=== PATIENT | male | born 1940 | race Caucasian/White ===

== ENCOUNTER 2016-12-03 00:06 | Emergency (ER) | payer MEDICARE, BC ==
[~2016-12-03] VITALS: Ht 188 cm; Wt 90.0 kg
[~2016-12-03 00:06] MED LIST: AMLO-147 PO; BENA40TA54 PO; CEPH500C PO; DONE10TA4 PO; ICNCLON PO; INSU100C5 SQ; ISOP1MED TP; METH10TA97 PO; SMV40T PO; TAMS0.4C2 PO; flomax
[2016-12-03 00:17] VITALS: Ht 188 cm; Wt 90.0 kg
[2016-12-03] MEDS ORDERED: SOD CHLORIDE 0.9% 250 ML IV STA (00:25)
[2016-12-03] MEDS ORDERED: LIDOCAINE/MYLANTA 40 ML BTL PO STA (00:25)
[2016-12-03 00:30] VITALS: BP 133/57; PULSE 66; RESP 20; TEMP 97.9
--- NOTE | 2016-12-03 00:34 | HP ---
Date/Time of Note Date/Time of Note DATE: 12/03/16 TIME: 00:27 Assessment/Plan VTE Prophylaxis VTE Prophylaxis Intervention: ambulation, anti-embolic stocking, LMWH Lines/Catheters IV Catheter Type (from Nrsg): Saline Lock Central line still needed: No Urinary Cath still in place: No Reason Cath still needed: urinary retention Assessment/Plan Assessment/Plan 1.N/V controlled-cont. w/u 2.CP- r/o mi 3.DM type 2 -sliding scale 4.Uncontrolled HTN 5.Dyslipidemia 6.COPD exacerbation 7.BPH 8.Hypertyroidism 9.AD and MG 10.PAD 11.Hematuria 12.DAVID disease 14.Anemia of chronic disease 15.Dizziness Cont'd Hospitalization Reason: r/o mi HPI/ROS Admit Date/Time Admit Date/Time n/v with uncontrolled bp. ROS Constitutional: chills, diaphoresis, disoriented, fatigue Eyes: discharge Respiratory: cough, shortness of breath, sputum Gastrointestinal: decreased appetite, flatus, nausea, pain Musculoskeletal: back pain, neck pain Neurologic: dizziness, headache PMH/Family/Social Past Medical History Medical History: angina, colitis, congestive heart failure, coronary artery disease, diabetes, GERD, GI bleed, high cholesterol, hypertension, hyperthyroid , pancreatitis, peptic ulcer disease, urinary tract infection Past Surgical History Past Surgical Hx: noncontributory Family History Significant Family History: no pertinent family hx, heart disease, COPD, diabetes, hypertension Social History Alcohol Use: rarely Smoking Status: Current every day smoker Drug Use: none Exam/Review of Systems Vital Signs Vitals Vital Signs Date Time Temp Pulse Resp B/P Pulse Ox O2 Delivery O2 Flow Rate FiO2 12/03/16 00:17 97.8 68 19 146/60 98 BARBARA LA MD Dec 03, 2016 00:34
[2016-12-03 00:51] LABS: ADD SCAN DIFF NO
[2016-12-03 00:52] LABS: BASOPHILS % 0.3 % (0.0-2.0); EOSINOPHILS # 0.2 10^3/ul (0.0-0.5); EOSINOPHILS % 1.5 % (0.0-7.0); HEMATOCRIT 35.6 % (42.0-52.0); LYMPHOCYTES # 2.7 10^3/ul (0.8-2.9); LYMPHOCYTES % 24.1 % (15.0-51.0); MEAN CORPUSCULAR HEMOGLOBIN 29.4 pg (29.0-33.0); MEAN CORPUSCULAR HGB CONC 33.7 g/dl (32.0-37.0); MEAN CORPUSCULAR VOLUME 87.3 fl (82.0-101.0); MEAN PLATELET VOLUME 9.5 fl (7.4-10.4); MONOCYTE # 0.5 10^3/ul (0.3-0.9); MONOCYTES % 4.8 % (0.0-11.0); NEUTROPHIL # 7.8 10^3/ul (1.6-7.5); NEUTROPHILS % 68.8 % (39.0-77.0); PLATELET COUNT 239 10^3/UL (140-415); RED BLOOD COUNT 4.08 10^6/ul (4.70-6.10); RED CELL DISTRIBUTION WIDTH 13.5 % (11.5-14.5); WHITE BLOOD COUNT 11.3 10^3/ul (4.8-10.8)
[2016-12-03 01:03] LABS: INR 0.96; PARTIAL THROMBOPLASTIN TIME 33.2 Sec (25.0-35.0); PROTIME 12.8 Sec (12.2-14.2)
[2016-12-03 01:04] LABS: ALBUMIN 4.1 g/dl (3.3-4.9)
[2016-12-03 01:05] LABS: POTASSIUM 3.9 mmol/L (3.5-5.1)
[2016-12-03 01:07] LABS: ALBUMIN/GLOBULIN RATIO 1.2; CREATININE 0.96 mg/dl (0.61-1.24); TOTAL PROTEIN 7.5 g/dl (6.1-8.1)
[2016-12-03 01:08] LABS: CALCIUM 8.9 mg/dl (8.4-10.2)
[2016-12-03 01:20] LABS: TROPONIN-I 0.018 ng/ml (0.00-0.12)
[2016-12-03 01:31] LABS: CK-MB 0.42 ng/ml (0.0-2.4)
[2016-12-03 01:38] LABS: ADD UMIC YES; URINE BILIRUBIN (Dip) NEGATIVE (NEGATIVE); URINE BLOOD (Dip) NEGATIVE (NEGATIVE); URINE COLOR LT. YELLOW (YELLOW); URINE GLUCOSE (Dip) NEGATIVE (NEGATIVE); URINE KETONES (Dip) NEGATIVE (NEGATIVE); URINE LEUKOCYTE ESTERASE (Dip) 1+ (NEGATIVE); URINE NITRITE (Dip) NEGATIVE (NEGATIVE); URINE TOTAL PROTEIN (Dip) 1+ (NEGATIVE); URINE UROBILINOGEN (Dip) 0.2 E.U./dL (0.1-1.0)
[2016-12-03 03:03] LABS: SQUAMOUS EPITHELIAL CELL,UR FEW; URINE RBCS 0-2 /HPF (0)
--- NOTE | 2016-12-03 03:08 | RADRPT ---
PROCEDURE: XR Chest. CLINICAL INDICATION: Abdominal Pain TECHNIQUE: Portable single view of the chest COMPARISON: 08/30/2013 FINDINGS: Shallow lung inflation accentuates the heart size which likely remains moderately enlarged. Aortic calcification is seen. Lung volumes are again reduced with pulmonary vascular congestion and perhap s mild interstitial edema. No definite focal alveolar infiltrate. No pleural effusion is seen. De generative change of the spine. IMPRESSION: No significant interval change. Cardiomegaly. Aortic atherosclerosis. Low lung volumes with probable mild congestive heart failure. RPTAT: HLBE Physician Annelise Date Time Electronically viewed and signed by Annie Red Physician on 12/03/2016 03:07 LE/
--- NOTE | 2016-12-03 04:54 | ERD ---
ER Documentation Chief Complaint Date/Time DATE: 12/03/16 TIME: 04:47 Chief Complaint chest pain x 1.5 hrs HPI 76-year-old male with a history of hypertension and CAD presenting to the ER after having several episodes of vomiting. For the chief complaint but says that the patient had chest pain, however he denies this. He states that he ate of few prunes last night before he went to bed. He failed to to the prunes because he did not have his dentures in. After he went to sleep, he states he woke up with the sensation that he was choking with shortness of breath. He started throwing up multiple times and all that was coming out where the prunes. He denies any blood. He had some epigastric pain during the vomiting, which has now resolved. He denies any nausea currently. No fevers, chills, cough, shortness of breath, chest pain. He denies any headache, focal weakness , vision disturbance, dizziness. ROS All systems reviewed and are negative except as per history of present illness. Medications Home Meds Reported Medications [flomax] No Conflict Check 08/30/13 Cephalexin* (Cephalexin*) 500 Mg Capsule, 500 MG PO 08/30/13 Insulin Glargine,Hum.rec.anlog (Lantus) 100 U/Ml Cartridge, 0 SQ 08/30/13 Donepezil Hcl (DONEPEZIL HCL) 10 Mg Tab.rapdis, 10 MG PO 08/30/13 Clonidine (Clonidine (Pediatric Compound)) 0.1 Mg/Ml Susp, 0.2 MG PO 08/30/13 Tamsulosin Hcl* (Tamsulosin Hcl*) 0.4 Mg Cap.er.24h, 0.4 MG PO 08/30/13 Isopropyl Alcohol/Benzocaine (SM ALCOHOL-BENZOCAINE PREP PAD) 1 Each Med..pad, 1 EACH TP 08/30/13 Amlodipine Besylate* (Amlodipine Besylate*) 10 Mg Tablet, 10 MG PO 08/30/13 Benazepril Hcl* (Lotensin*) 40 Mg Tablet, 40 MG PO 08/30/13 Simvastatin (Simvastatin) 40 Mg Tablet, 40 MG PO 08/30/13 Methimazole* (Tapazole*) 10 Mg Tablet, 10 MG PO 08/30/13 Allergies Allergies: Coded Allergies: No Known Allergies (Verified Allergy, Unknown, 10/12/08) PMhx/Soc History of Surgery: Yes (STENT PLACEMENT,NOSE SX,PROSTATE) Anesthesia Reaction: No Hx Neurological Disorder: No Hx Respiratory Disorders: Yes (COPD) Hx Cardiac Disorders: Yes (HTN,HYPERCHOLESTEROL) Hx Psychiatric Problems: Yes (DEMENTIA) Hx Miscellaneous Medical Probl: No (DM, GLAUCOMA ) Hx Alcohol Use: No Hx Substance Use: No Hx Tobacco Use: Yes (8-10CIGS/ DAY ) Smoking Status: Current every day smoker FmHx Family History: No diabetes Physical Exam Vitals Vital Signs Date Time Temp Pulse Resp B/P Pulse Ox O2 Delivery O2 Flow Rate FiO2 12/03/16 00:30 97.9 66 20 133/57 98 Room Air 12/03/16 00:17 97.8 68 19 146/60 98 Physical Exam Const: Well-appearing, no distress, not diaphoretic Head: Atraumatic Eyes: Normal Conjunctiva ENT: Normal External Ears, Nose and Mouth. Neck: Full range of motion. No meningismus. Resp: Clear to auscultation bilaterally Cardio: Regular rate and rhythm, no murmurs Abd: Soft, non tender, non distended. Normal bowel sounds Skin: Warm, dry. No petechiae or rashes Back: No midline or flank tenderness Ext: No cyanosis, or edema Neur: Awake and alert and oriented 3, cranial nerves intact, strength and sensations intact in all 4 extremities Psych: Normal Mood and Affect Result Diagram: 12/03/160 12/03/16 0040 Results 24 hrs Laboratory Tests Test 12/03/16 00:40 12/03/16 01:25 Activated Partial Thromboplast Time 33.2Sec Alanine Aminotransferase (ALT/SGPT) 34IU/L Albumin 4.1g/dl Albumin/Globulin Ratio 1.20 Alkaline Phosphatase 79IU/L Anion Gap 18 Aspartate Amino Transf (AST/SGOT) 24IU/L Basophils # 0.010^3/ul Basophils % 0.3% Blood Urea Nitrogen 25mg/dl Calcium Level 8.9mg/dl Carbon Dioxide Level 26mmol/L Chloride Level 106mmol/L Creatine Kinase 34IU/L Creatinine 0.96mg/dl Creatinine Kinase MB (Mass) 0.42ng/ml Direct Bilirubin 0.00mg/dl Eosinophils # 0.210^3/ul Eosinophils % 1.5% Globulin 3.40g/dl Glucose Level 106mg/dl Hematocrit 35.6% Hemoglobin 12.0g/dl INR International Normalized Ratio 0.96 Indirect Bilirubin 0.0mg/dl Lipase 152U/L Lymphocytes # 2.710^3/ul Lymphocytes % 24.1% Mean Corpuscular Hemoglobin 29.4pg Mean Corpuscular Hemoglobin Concent 33.7g/dl Mean Corpuscular Volume 87.3fl Mean Platelet Volume 9.5fl Monocytes # 0.510^3/ul Monocytes % 4.8% Neutrophils # 7.810^3/ul Neutrophils % 68.8% Nucleated Red Blood Cells # 0.010^3/ul Nucleated Red Blood Cells % 0.0/100WBC Platelet Count 51356^3/UL Potassium Level 3.9mmol/L Prothrombin Time 12.8Sec Prothrombin Time Ratio 1.0 Red Blood Count 4.0810^6/ul Red Cell Distribution Width 13.5% Sodium Level 146mmol/L Total Bilirubin 0.0mg/dl Total Protein 7.5g/dl Troponin I 0.018ng/ml White Blood Count 11.310^3/ul Urine Bilirubin NEGATIVE Urine Clarity CLEAR Urine Color LT. YELLOW Urine Glucose NEGATIVE% Urine Hemoglobin NEGATIVE Urine Ketones NEGATIVE Urine Leukocyte Esterase 1+ Urine Microscopic RBC 0-2/HPF Urine Microscopic WBC 5-10/HPF Urine Nitrite NEGATIVE Urine Specific [place] 1.025 Urine Squamous Epithelial Cells FEW Urine Total Protein 1+ Urine Urobilinogen 0.2 E.U./dL Urine pH 5.5 Current Medications Medications (Trade) Dose Ordered Sig/Nubia Route PRN Reason Start Time Stop Time Status Last Admin Dose Admin Sodium Chloride (NS) 250 ml @ 250 mls/hr Q1H STAT IV 12/03/16 00:25 12/03/16 01:24 DC 12/03/16 00:54 Miscellaneous Medication (Gi Cocktail (2)) 40 ml ONCE STAT PO 12/03/16 00:25 12/03/16 00:27 DC Procedures/MDM EMERGENT LABS AND DIAGNOSTIC STUDIES: Lab Results above were reviewed and interpreted by me. CBC and CMP without significant abnormalities Cardiac enzymes are within normal limits 12-lead EKG was interpreted by Silvia Camarillo MD: Normal sinus rhythm Left anterior fascicular block LVH No acute ST or T wave changes suggestive of acute ischemia or STEMI. Radiology Results as interpreted by Radiology below were reviewed by Wayne Camarillo MD: Chest x-ray without acute abnormalities Initial Nursing notes reviewed. Previous Medical Records requested via the Electronic Health Record. EMERGENCY DEPARTMENT COURSE / MEDICAL DECISION MAKING: Patient is presenting after he woke up with a feeling of something stuck in his throat and he started vomiting. After this he felt perfectly fine. Currently his vitals are within normal limits and he is afebrile. He is nontoxic and his exam is unremarkable. His EKG did not show acute ischemia and his cardiac enzymes were within normal limits. I have a low suspicion for any intracranial hemorrhage, stroke, dissection. I have a low suspicion for acute coronary syndrome. There is no evidence of acute surgical abdomen. I discussed the results with the patient and stated that I cannot completely rule out acute coronary syndrome as he is at high risk with just 1 troponin and 1 EKG. He understands this but would like to go home at this time as he feels significantly better. There was shared decision making with the patient and his family. They understand that acute coronary syndrome cannot be ruled out at this time, but they feel comfortable taking him home and returning if any of his symptoms worsen. Patient was discharged in stable condition with strict return precautions. Patient's blood pressure was elevated (>120/80) but appears stable without evidence of hypertensive emergency or urgency. The patient was counseled about the risks of hypertension and urged to pursue outpatient monitoring and therapy within a week with their primary care physician. Departure Diagnosis: Primary Impression: Nausea and vomiting Vomiting type: unspecified Vomiting Intractability: non-intractable Qualified Code: R11.2 - Non-intractable vomiting with nausea, unspecified vomiting type Condition: Stable Patient Instructions: Nausea and Vomiting-Adult Additional Instructions: Return for any new or worsening symptoms. EKMEKJIAN,NELLIE R. MD Dec 03, 2016 04:54
== END 2016-12-03 03:27 | disposition home or self-care (01) ==
LOC: E/R 00:06
DX: R11.2 Nausea with vomiting, unspecified (principal); J44.9 Chronic obstructive pulmonary disease, unspecified; I10 Essential (primary) hypertension; E11.9 Type 2 diabetes mellitus without complications; F17.210 Nicotine dependence, cigarettes, uncomplicated; Z79.4 Long term (current) use of insulin
CPT/HCPCS: 36415; 71010; 80053; 81001; 82550; 82553; 83690; 84484; 85025; 85610; 85730; 99285; J7040; 81003

== ENCOUNTER 2017-02-27 22:27 | Inpatient (IN) | payer MEDICARE, BC ==
[~2017-02-27] VITALS: Ht 185.4 cm; Wt 78.8 kg
[2017-02-28 00:37] LABS: ADD SCAN DIFF NO
[2017-02-28 00:39] LABS: BASOPHILS % 0.3 % (0.0-2.0); EOSINOPHILS # 0.1 10^3/ul (0.0-0.5); HEMOGLOBIN 11.8 g/dl (14.0-18.0); LYMPHOCYTES # 2.1 10^3/ul (0.8-2.9); LYMPHOCYTES % 17.8 % (15.0-51.0); MEAN CORPUSCULAR HGB CONC 31.9 g/dl (32.0-37.0); MEAN CORPUSCULAR VOLUME 84.7 fl (82.0-101.0); MEAN PLATELET VOLUME 9.9 fl (7.4-10.4); MONOCYTE # 0.7 10^3/ul (0.3-0.9); MONOCYTES % 5.7 % (0.0-11.0); NEUTROPHIL # 8.8 10^3/ul (1.6-7.5); NEUTROPHILS % 74.6 % (39.0-77.0); PLATELET COUNT 246 10^3/UL (140-415); RED BLOOD COUNT 4.37 10^6/ul (4.70-6.10); RED CELL DISTRIBUTION WIDTH 12.6 % (11.5-14.5); WHITE BLOOD COUNT 11.8 10^3/ul (4.8-10.8)
[2017-02-28 00:57] LABS: ALBUMIN 4.7 g/dl (3.3-4.9); ALBUMIN/GLOBULIN RATIO 1.42; BILIRUBIN,INDIRECT 0.1 mg/dl (0-1.1); BILIRUBIN,TOTAL 0.1 mg/dl (0.2-1.3); CALCIUM 9.4 mg/dl (8.4-10.2); CREATININE 1.07 mg/dl (0.61-1.24); POTASSIUM 4.5 mmol/L (3.5-5.1)
[2017-02-28 01:17] LABS: URINE BLOOD (Dip) POC 3+ (NEGATIVE)
[2017-02-28 01:37] LABS: ADD UMIC YES; URINE BILIRUBIN (Dip) NEGATIVE (NEGATIVE); URINE BLOOD (Dip) 3+ (NEGATIVE); URINE COLOR LT. YELLOW (YELLOW); URINE GLUCOSE (Dip) NEGATIVE (NEGATIVE); URINE KETONES (Dip) NEGATIVE (NEGATIVE); URINE LEUKOCYTE ESTERASE (Dip) NEGATIVE (NEGATIVE); URINE NITRITE (Dip) NEGATIVE (NEGATIVE); URINE TOTAL PROTEIN (Dip) 2+ (NEGATIVE); URINE UROBILINOGEN (Dip) 0.2 E.U./dL (0.1-1.0)
[2017-02-28 01:54] LABS: URINE RBCS >200 /HPF (0)
[2017-02-28 01:55] LABS: BACTERIA,URINE OCCASIONAL
--- NOTE | 2017-02-28 02:10 | ERA ---
ER Documentation Chief Complaint Date/Time DATE: 02/28/17 TIME: 02:10 Chief Complaint Urine problem. Dr Nj sent pt here. Urinary retention x4 days HPI 76-year-old male with history of bladder tumor with urinary retention for the past 3 days. Denies any nausea vomiting fevers or chills. Pain is mild to moderate intensity. Patient does have history of bladder tumor. Sent in by urologist. ROS All systems reviewed and are negative except as per history of present illness. Medications Home Meds Reported Medications [flomax] No Conflict Check 08/30/13 Cephalexin* (Cephalexin*) 500 Mg Capsule, 500 MG PO 08/30/13 Insulin Glargine,Hum.rec.anlog (Lantus) 100 U/Ml Cartridge, 0 SQ 08/30/13 Donepezil Hcl (DONEPEZIL HCL) 10 Mg Tab.rapdis, 10 MG PO 08/30/13 Clonidine (Clonidine (Pediatric Compound)) 0.1 Mg/Ml Susp, 0.2 MG PO 08/30/13 Tamsulosin Hcl* (Tamsulosin Hcl*) 0.4 Mg Cap.er.24h, 0.4 MG PO 08/30/13 Isopropyl Alcohol/Benzocaine (SM ALCOHOL-BENZOCAINE PREP PAD) 1 Each Med..pad, 1 EACH TP 08/30/13 Amlodipine Besylate* (Amlodipine Besylate*) 10 Mg Tablet, 10 MG PO 08/30/13 Benazepril Hcl* (Lotensin*) 40 Mg Tablet, 40 MG PO 08/30/13 Simvastatin (Simvastatin) 40 Mg Tablet, 40 MG PO 08/30/13 Methimazole* (Tapazole*) 10 Mg Tablet, 10 MG PO 08/30/13 Allergies Allergies: Coded Allergies: No Known Allergies (Verified Allergy, Unknown, 10/12/08) PMhx/Soc History of Surgery: Yes (STENT PLACEMENT,NOSE SX,PROSTATE) Anesthesia Reaction: No Hx Neurological Disorder: No Hx Respiratory Disorders: Yes (COPD) Hx Cardiac Disorders: Yes (HTN,HYPERCHOLESTEROL) Hx Psychiatric Problems: Yes (DEMENTIA) Hx Miscellaneous Medical Probl: Yes (DM, GLAUCOMA ) Hx Alcohol Use: No Hx Substance Use: No Hx Tobacco Use: Yes (8-10CIGS/ DAY ) Smoking Status: Current every day smoker Physical Exam Vitals Vital Signs Date Time Temp Pulse Resp B/P Pulse Ox O2 Delivery O2 Flow Rate FiO2 02/27/17 22:42 97.7 79 22 234/100 99 Physical Exam Const: [] Head: Atraumatic Eyes: Normal Conjunctiva ENT: Normal External Ears, Nose and Mouth. Neck: Full range of motion..~ No meningismus. Resp: Clear to auscultation bilaterally Cardio: Regular rate and rhythm, no murmurs Abd: Soft, non tender, non distended. Normal bowel sounds Skin: No petechiae or rashes Back: No midline or flank tenderness Ext: No cyanosis, or edema Neur: Awake and alert Psych: Normal Mood and Affect Result Diagram: 02/28/17 0020 02/28/17 0020 Results 24 hrs Laboratory Tests Test 02/28/17 00:20 02/28/17 01:15 02/28/17 01:19 White Blood Count 11.810^3/ul Red Blood Count 4.3710^6/ul Hemoglobin 11.8g/dl Hematocrit 37.0% Mean Corpuscular Volume 84.7fl Mean Corpuscular Hemoglobin 27.0pg Mean Corpuscular Hemoglobin Concent 31.9g/dl Red Cell Distribution Width 12.6% Platelet Count 96509^3/UL Mean Platelet Volume 9.9fl Neutrophils % 74.6% Lymphocytes % 17.8% Monocytes % 5.7% Eosinophils % 1.0% Basophils % 0.3% Nucleated Red Blood Cells % 0.0/100WBC Neutrophils # 8.810^3/ul Lymphocytes # 2.110^3/ul Monocytes # 0.710^3/ul Eosinophils # 0.110^3/ul Basophils # 0.010^3/ul Nucleated Red Blood Cells # 0.010^3/ul Sodium Level 142mmol/L Potassium Level 4.5mmol/L Chloride Level 102mmol/L Carbon Dioxide Level 27mmol/L Anion Gap 18 Blood Urea Nitrogen 23mg/dl Creatinine 1.07mg/dl Glucose Level 218mg/dl Calcium Level 9.4mg/dl Total Bilirubin 0.1mg/dl Direct Bilirubin 0.00mg/dl Indirect Bilirubin 0.1mg/dl Aspartate Amino Transf (AST/SGOT) 23IU/L Alanine Aminotransferase (ALT/SGPT) 31IU/L Alkaline Phosphatase 77IU/L Total Protein 8.0g/dl Albumin 4.7g/dl Globulin 3.30g/dl Albumin/Globulin Ratio 1.42 Lipase 103U/L Urine Color LT. YELLOW Urine Clarity CLEAR Urine pH 5.5 Urine Specific [place] 1.020 Urine Ketones NEGATIVE Urine Nitrite NEGATIVE Urine Bilirubin NEGATIVE Urine Urobilinogen 0.2 E.U./dL Urine Leukocyte Esterase NEGATIVE Urine Microscopic RBC >200/HPF Urine Microscopic WBC 0-2/HPF Urine Bacteria OCCASIONAL Urine Hemoglobin 3+ Urine Glucose NEGATIVE% Urine Total Protein 2+ Bedside Urine pH (LAB) 6.0 Bedside Urine Protein (LAB) 2+ Bedside Urine Glucose (UA) Negative Bedside Urine Ketones (LAB) Negative Bedside Urine Blood 3+ Bedside Urine Nitrite (LAB) Negative Bedside Urine Leukocyte Esterase (L Negative Procedures/MDM Thorpe catheter in place with 500 cc of fluid drained. Patient be admitted to on-call for his physician. Urologist made aware. Departure Diagnosis: Primary Impression: Genitourinary symptoms Condition: Serious DEBORAH AZAR Feb 28, 2017 02:10
[2017-02-28] MEDS ORDERED: COMBIG5 LEFT EYE (05:44)
[2017-02-28] MEDS ORDERED: CRES10 PO (05:44)
[2017-02-28] MEDS ORDERED: AMLO1TAB14 PO (05:44)
[2017-02-28] MEDS ORDERED: CLON0.2T5 PO (05:44)
[2017-02-28] MEDS ORDERED: LEVO500T10 PO (05:44)
[2017-02-28] MEDS ORDERED: EZET10TA3 PO (05:44)
[2017-02-28] MEDS ORDERED: IBUP200C11 PO (05:44)
[2017-02-28] MEDS ORDERED: TRAV4OP25 LEFT EYE (05:44)
[2017-02-28] MEDS ORDERED: SENN-53 PO (05:44)
[2017-02-28] MEDS ORDERED: METO-407 PO (05:44)
[2017-02-28] MEDS ORDERED: DORZ10DR LEFT EYE (05:44)
--- NOTE | 2017-02-28 08:36 | RADRPT ---
PROCEDURE: XR Chest AP portable CLINICAL INDICATION: Preop TECHNIQUE: An AP portable radiograph of the chest was submitted. COMPARISON: 12/03/2016 FINDINGS: Support Hardware: None Cardiovascular: The cardiovascular silhouette appears unremarkable except for persistent atheroscler otic changes involving the aorta. Lung Wyman: The lung wyman appear clear with no nodule, alveolar infiltrate, or interstitial promi nence evident. Pleural Spaces: No pneumothorax or pleural effusion is identified. Osseous Structures: Mild diffuse degenerative spine changes are noted. Soft Tissues: The soft tissues appear unremarkable. IMPRESSION: 1. Atherosclerotic aorta. 2. Improved inspiration with the lung wyman now clear. 3. Mild diffuse degenerative spine changes. Physician Vidhi Date Time Electronically viewed and signed by Physician Vidhi on 02/28/2017 08:35 /
--- NOTE | 2017-02-28 11:23 | RADRPT ---
Echocardiogram Report Patient Name: BYRON RODRIGUEZ Gender: Male Date: 1940 Study Date: 28-Feb-2017 [employer] Cleaning Machine Operator: Gareth Reyna [facility] Location: [id number] Ref. Physician: THA HOWARD Quality: Good Procedures: Transthoracic echocardiogram with complete 2D, M-Mode, and doppler examination. Indications: Coronary Artery Disease. Pre-op. 2D/M Mode Doppler Measurement Value Normal Ranges Measurement Value Normal Ranges LVIDd 2D 4.8 3.5 - 5.6 cm DEYANIRA Vmax 1.9 cm2 LVIDs 2D 2.7 2.1 - 4.1 cm DEYANIRA VTI 1.9 cm2 FS 2D 44.7 % AV Mean Fco 1.5 m/sec LVPWd 2D 1.2 0.6 - 1.1 cm AV Mean PG 11.0 mmHg IVSd 2D 1.0 0.6 - 1.1 cm AV Peak Fco 2.1 m/sec IVS/LVPW 2D 1.2 AV Peak PG 18.0 mmHg AoR Diam 2D 2.7 2.0 - 3.7 cm AV VTI 55.7 cm LA/Ao 2D 1 0 - 1 LVOT Mean Fco 0.9 m/sec EDV 2D 110.0 cm3 LVOT Mean PG 4.0 mmHg ESV 2D 18.6 cm3 LVOT Peak Fco 1.3 m/sec LA Dimen 2D 3.4 2.3 - 4.0 cm LVOT Peak PG 7.0 mmHg LVOT Diam 2.0 cm LVOT VTI 33.4 cm LVOT Area 3.1 cm2 MV E Peak Fco 0.5 m/sec MV A Peak Fco 0.8 m/sec MV E/A 0.7 MV Decel Time 215 msec MV E/A 0.7 TR Peak Fco 1.9 m/sec TR Peak PG 14.0 mmHg RVSP 17.0 mmHg Findings Left Ventricle: Normal left ventricular systolic function. Normal left ventricular cavity size. Mild concentric left ventricular hypertrophy. Ejection fraction is visually estimated at 65 %. Tissue Doppler/Mitral Doppler indices are consistent with impaired relaxation (Stage I diastolic dysfunction). Right Ventricle: Normal right ventricular size. Normal right ventricular systolic function. Left Atrium: The left atrium is normal in size. Right Atrium: The right atrium is normal in size. Mitral Valve: Normal appearance and function of the mitral valve with trace physiologic regurgitation. Aortic Valve: Aortic valve Max velocity 2.12 m/sec. Mean PG 11.00 mmHg. Aortic sclerosis without stenosis. Trace aortic valve regurgitation. Tricuspid Valve: Normal appearance of the tricuspid valve. Estimated peak PA systolic pressure 17 mmHg. There is trace tricuspid regurgitation. Pulmonic Valve: Pulmonic valve not well visualized. Pericardium: Normal pericardium with no significant pericardial effusion. Aorta: Normal aortic root. IVC: Normal size and normal respiratory collapse consistent with normal right atrial pressure. Conclusions Normal left ventricular systolic function. Normal left ventricular cavity size. Mild concentric left ventricular hypertrophy. Ejection fraction is visually estimated at 65 %. Tissue Doppler/Mitral Doppler indices are consistent with impaired relaxation (Stage I diastolic dysfunction). Normal right ventricular size. Normal right ventricular systolic function. The left atrium is normal in size. The right atrium is normal in size. No significant valvular stenosis or regurgitation seen. Normal pericardium with no significant pericardial effusion. Electronically Signed By: Tha Howard 28-Feb-2017 11:23:17 -0700 Patient Name: BYRON RODRIGUEZ Study Date: 28-Feb-2017 [id number]
--- NOTE | 2017-02-28 11:34 | CONS ---
Date/Time of Note Date/Time of Note DATE: 02/28/17 TIME: 11:25 Assessment/Plan Assessment/Plan Additional Assessment/Plan Preoperative cardiac risk stratification Bladder tumor with obstruction as per history Preserved ejection fraction CAD with history of PCI approximately 2008 Hypertension Diabetes Dyslipidemia -Patient denies chest pain or shortness of breath at rest or with activity. Echocardiogram with preserved ejection fraction. ECG without significant ischemic abnormalities. Patient at an intermediate risk for any untoward cardiac events for his bladder procedure, the benefits likely outweigh the risks. No further cardiac studies are needed prior to procedure. Would recommend continuing beta-jumana as blood pressure permits as well as statin therapy and blood pressure control. Withhold antiplatelet therapy and restart postoperatively when okay by our surgery colleagues. Consultation Date/Type/Reason Admit Date/Time Type of Consultation: cv Reason for Consultation Preoperative cardiac risk stratification Hx of Present Illness This is a 76-year-old male with past medical history of coronary artery disease with PCI approximately 2008, diabetes, hypertension who has been recently diagnosed with bladder tumor and urinary obstruction. Patient was sent to the emergency room for admission to undergo bladder procedure. Patient denies any chest pain or shortness of breath at rest or with exertion. He is able to walk up a flight of stairs and a few blocks without any symptoms of chest pain or shortness of breath. He does have history of hypertension which worsens during pain. Patient yesterday with significant discomfort and blood pressure was quite elevated. He denied any chest pain or shortness of breath during this episode. Cardiac consultation was requested for preoperative risk stratification. 12 point review of systems was performed with all pertinent positives and negatives mentioned above and all else is negative Past Medical History Bladder tumor Medical History: coronary artery disease, diabetes, high cholesterol, hypertension Past Surgical History Past Surgical Hx: angioplasty Family History Significant Family History: no pertinent family hx Social History Smoking Status: Current every day smoker Other Social History Lives at home Exam/Review of Systems Vital Signs Vitals Vital Signs Date Time Temp Pulse Resp B/P Pulse Ox O2 Delivery O2 Flow Rate FiO2 02/28/17 09:49 58 20 167/56 98 Room Air 02/27/17 22:42 97.7 Exam No apparent distress Constitutional: alert, obese, oriented Head: normocephalic Neck: supple Respiratory: other (Coarse breath sounds bilaterally, no wheezing) Cardiovascular: other (Clear S1 and S2), regular rate and rhythm, systolic murmur (Early peaking systolic murmur) Gastrointestinal: bowel sounds, non-tender, other (No guarding), soft Extremities: edema (Trace) Results Result Diagram: 02/28/17 0020 02/28/17 0020 Results 24 hrs Laboratory Tests Test 02/28/17 00:20 02/28/17 01:15 02/28/17 01:19 White Blood Count 11.8 H Red Blood Count 4.37 L Hemoglobin 11.8 L Hematocrit 37.0 L Mean Corpuscular Volume 84.7 Mean Corpuscular Hemoglobin 27.0 L Mean Corpuscular Hemoglobin Concent 31.9 L Red Cell Distribution Width 12.6 Platelet Count 246 Mean Platelet Volume 9.9 Neutrophils % 74.6 Lymphocytes % 17.8 Monocytes % 5.7 Eosinophils % 1.0 Basophils % 0.3 Nucleated Red Blood Cells % 0.0 Neutrophils # 8.8 H Lymphocytes # 2.1 Monocytes # 0.7 Eosinophils # 0.1 Basophils # 0.0 Nucleated Red Blood Cells # 0.0 Sodium Level 142 Potassium Level 4.5 Chloride Level 102 Carbon Dioxide Level 27 Anion Gap 18 H Blood Urea Nitrogen 23 H Creatinine 1.07 Glucose Level 218 Calcium Level 9.4 Total Bilirubin 0.1 L Direct Bilirubin 0.00 Indirect Bilirubin 0.1 Aspartate Amino Transf (AST/SGOT) 23 Alanine Aminotransferase (ALT/SGPT) 31 Alkaline Phosphatase 77 Total Protein 8.0 Albumin 4.7 Globulin 3.30 H Albumin/Globulin Ratio 1.42 Lipase 103 Urine Color LT. YELLOW Urine Clarity CLEAR Urine pH 5.5 Urine Specific [place] 1.020 Urine Ketones NEGATIVE Urine Nitrite NEGATIVE Urine Bilirubin NEGATIVE Urine Urobilinogen 0.2 E.U./dL Urine Leukocyte Esterase NEGATIVE Urine Microscopic RBC >200 Urine Microscopic WBC 0-2 Urine Bacteria OCCASIONAL Urine Hemoglobin 3+ H Urine Glucose NEGATIVE Urine Total Protein 2+ H Bedside Urine pH (LAB) 6.0 Bedside Urine Protein (LAB) 2+ H Bedside Urine Glucose (UA) Negative Bedside Urine Ketones (LAB) Negative Bedside Urine Blood 3+ H Bedside Urine Nitrite (LAB) Negative Bedside Urine Leukocyte Esterase (L Negative Procedures Procedures ECG demonstrates sinus rhythm at 79 bpm, left ventricular hypertrophy, IVCD with QRS 120 ms, nonspecific STT wave abnormalities Tha Howard DO Feb 28, 2017 11:34
[2017-02-28] MEDS ORDERED: ACETAMINOPHEN 325 MG TAB PO PRN (12:00)
[2017-02-28] MEDS ORDERED: GLUCOSE GEL 15 GRAM TUBE PO PRN ×2 (12:00)
[2017-02-28] MEDS ORDERED: ONDANSETRON 4 MG INJ IV PRN (12:00)
[2017-02-28] MEDS ORDERED: GLUCAGON 1 MG INJ IM PRN (12:00)
[2017-02-28] MEDS ORDERED: morphine 2 MG INJ IV PRN (12:00)
[2017-02-28] MEDS ORDERED: GLUCOSE GEL 15 GRAM TUBE BUCCAL PRN (12:00)
[2017-02-28] MEDS: INSULIN ASPART [NOVOLOG] 3 ML PEN SC SCH ×3 (12:00→22:21)
[2017-02-28] MEDS ORDERED: DEXTROSE 50% 50 ML SYRINGE IV PRN ×2 (12:00)
--- NOTE | 2017-02-28 12:16 | HP ---
DATE OF ADMISSION: 02/27/2017 CHIEF COMPLAINT: Hematuria and urinary retention. HISTORY OF PRESENT ILLNESS: Patient is a 76-year-old Jordanian gentleman with past medical history p ositive for coronary artery disease, COPD, congestive heart failure, hypertension, hyperlipidemia, d iabetes and history of urothelial carcinoma status post resection in [address] Nj. Patient n oted to have hematuria yesterday and went to Dr. Nj's office and was referred to the emergency room. The patient had a Thorpe catheter placed in the emergency room and there was 500 mL of urine d rained. The patient denies any fever, nausea, vomiting. Denies any chest pain, denies shortness of breath, and the patient will be admitted for further evaluation and management. PAST MEDICAL HISTORY: Coronary artery disease status post stent placement, the patient followed mary Claudio's office in cardiology. The patient also has history of hyperthyroidism and takes Tapaz ole. CHF, COPD, hyperlipidemia, tobacco dependence, hypertension, and diabetes mellitus type 2. PAST SURGICAL HISTORY: Status post sinus papilloma removal in 2003, cardiac stent placement in 2008 , details are not available; status post bladder tumor resection in 2012, status post left eye stan ract surgery 2014, status post left eye glaucoma surgery in 2015. SOCIAL HISTORY: The patient lives at home with his family. The patient is a [facility] tobacco user , smokes about 10 cigarettes per day, smoked for many years. The patient denies any alcohol use, de nies any illicit drug use. FAMILY HISTORY: Noncontributory. ALLERGIES: NO KNOWN ALLERGIES. HOME MEDICATIONS: Include: 1. Cephalexin 2. Lantus. 3. Donepezil. 4. ____ 5. Tamsulosin. 6. Amlodipine. 7. Lotensin. 8. Simvastatin. 9. Tapazole. REVIEW OF SYSTEMS: A 12-point review of systems is negative unless what mentioned in the HPI. PHYSICAL ASSESSMENT GENERAL: Well-developed, well-nourished male, currently is awake, alert, in no acute distress. VITAL SIGNS: Temperature is 97.7, pulse is 68, blood pressure is 167/56, respiratory rate 20, oxyge n saturation 98% on room air. HEENT: Head is atraumatic, normocephalic. Pupils equal, round, reactive to light and accommodation . Oral mucosa is pink and moist. NECK: Supple, no cervical lymphadenopathy, no thyromegaly. CHEST: Lungs clear bilaterally. There is no rhonchi, wheezes, rales noted. CARDIOVASCULAR: Normal S1, S2. No murmurs, gallops, clicks, rubs noted. ABDOMEN: Round, soft, nondistended, nontender. Bowel sounds present. There is no guarding, no william ound tenderness. EXTREMITIES: No edema, clubbing, cyanosis. Pulses equal bilaterally 2+. GENITOURINARY: Patient has a Thorpe catheter with yellow urine. SKIN: No rash, petechiae noted. NEUROLOGIC: Patient is awake, alert and oriented x4. No focal deficits noted. Motor strength 5/5 in all extremities. LABORATORY DATA: On admission, CBC: White blood cells 11.8, hemoglobin 11.8, hematocrit 37.0, plat elets 246. Chemistry: Sodium is 142, potassium 4.5, chloride 102, carbon dioxide 27, anion gap 18, BUN is 23, creatinine 1.07, glucose 218, calcium 9.4, AST 23, ALT 31, alkaline phosphatase 77, lipa se is 103. Urine alkalosis is negative for nitrite, negative for leukocyte esterase. IMAGING: Chest x-ray with impression of: 1. Atherosclerotic aorta, improved inspiration with lung wyman now clear. 2. Mild diffuse degenerative spine changes. ASSESSMENT AND PLAN: 1. Urinary retention with history of bladder tumor, status post transurethral resection of the blad trell tumor in 2012. Dr. Nj will be following patient in urology consultation. 2. Coronary artery disease with history of stent placement. Dr. Howard will be following patient i n cardiology consultation. 3. Hypertension. Will resume patient's home medication. Continue to monitor blood pressure. 4. Dyslipidemia. Continue statin. 5. Diabetes mellitus. Will continue Lantus and NovoLog per mild ____ sliding scale. 6. Hyperthyroidism. Continue Tapazole. Continue sequential compression device for deep venous thro mbosis prophylaxis and Pepcid for peptic ulcer disease prophylaxis. Further recommendations based on clinical course. Plan of care discussed with Dr. Cardenas. Dictated By: THOMAS GASTON RE[facility] ATTENDANT for LIDA CARDENAS MD SR/NTS Conf#: [id number] DID#: [id number]
--- NOTE | 2017-02-28 13:59 | CONS ---
DATE OF ADMISSION: 02/27/2017 DATE OF CONSULTATION: 02/28/2017 ATTENDING PHYSICIANS: Ryan Real MD and Janice Blount MD. HISTORY OF PRESENT ILLNESS: This is a 76-year-old male who has been having gross hematuria, painles s for about a week and he also has been passing blood clots. He does have a history of bladder tumo r that was resected in 2012. The patient was supposed to follow up, but according to his daughter, he is a very stubborn man and did not follow up, so now he comes in with gross hematuria. I saw him in the office on 02/26/2017, and on the ultrasound indeed it shows that he has 2 tumors, one on the left side, one on the right side of the bladder. The plan was to schedule him for resection of the se bladder tumors after he sees his primary care doctor, Dr. Blount and also the soil chemist to make sure that cardiology fallon he is cleared and especially that he has had a history of coronary ar elaine disease, history of angina, myocardial infarction, and he has had coronary stents put in before . The patient did go home. However, yesterday his daughter called me stating that he is bleeding a nd he cannot urinate. He had urinary retention; therefore, she brought him to the emergency room an d indeed he did have urinary retention. They put a Thorpe catheter and about 500 of urine mixed with blood was drained. Therefore, the patient was admitted to the hospital and we will see that he is medically cleared and then I will do the cystoscopy and resect the bladder tumor while he is in the hospital. PAST MEDICAL HISTORY: The other significant past medical history also includes a history of coronar y artery disease, diabetes, high cholesterol, and hypertension. SOCIAL HISTORY: The patient is a smoker and he still smokes every day. ALLERGIES: HE DENIES ANY DRUG ALLERGIES. MEDICATIONS: At home were reviewed, but at the present they are not all continued. The medications that he is now on include: 1. Methimazole 10 mg daily. 2. Lipitor 40 mg at bedtime. 3. Lopressor 50 mg twice a day. 5. Pepcid 20 mg q.12h. oral. 6. Combigan eyedrops. 7. Travatan eyedrops. 8. Tamsulosin 0.4 mg at bedtime. 9. Trusopt eyedrops. 10. Zofran p.r.n. 5. Tylenol p.r.n. 6. Morphine p.r.n. 7. Insulin also coverage for his diabetes. PHYSICAL EXAMINATION: GENERAL: Reveals an elderly male, 76 years old. He weighs 78.5 kg. VITAL SIGNS: Temperature is 97.7, pulse is 69, respiration 22, blood pressure 135/54. The neck is supple. ABDOMEN: A little obese but there is no abdominal mass palpable. GENITALIA: External genitalia are normal. RECTAL: Examination revealed soft prostate. EXTREMITIES: Reveal no edema. LABORATORY DATA: His CBC shows a white count of 11.8, hemoglobin 11.8, hematocrit 37.0. The BUN is 23, creatinine 1.07, sodium 142, potassium 4.5, chloride 102, CO2 27. Urine is bloody. Urine cult ure is no growth after 24 hours. IMAGING: Chest x-ray atherosclerotic aorta, improved inspiration with the lung wyman now clear. M ild diffuse degenerative spine changes. IMPRESSION: Gross hematuria secondary to bladder tumors. PLAN: Schedule him for cystoscopy and transurethral resection of the bladder tumor. The patient wi ll be evaluated by the soil chemist and I did call Dr. Claudio this morning and he asked his partner, Dr. Howard, to see him and he saw him and it looks like he basically recommended to go ahead and do the procedure and that there no further cardiac studies are needed prior to the procedure, continue his beta-blockers and also certainly stop the antiplatelet therapy. I will schedule the patient fo r the procedure tomorrow and I have talked to his daughter about that and they are agreeable to proc eed. Dictated By: MARIE ANTUNEZ/JOSELIN Conf#: [id number] DID#: [id number]
[2017-02-28 14:27] LABS: INR 1.01; PROTIME 13.3 Sec (12.2-14.2)
[2017-02-28 14:28] LABS: PARTIAL THROMBOPLASTIN TIME 38.8 Sec (25.0-35.0)
[2017-02-28 20:00] VITALS: Ht 185.4 cm; Wt 78.8 kg
[2017-02-28] MEDS ORDERED: TRAVOPROST 0.004% 2.5 ML OPH LEFT EYE SCH (21:00)
[2017-02-28] MEDS ORDERED: METOPROLOL 50 MG TAB PO SCH (21:00)
[2017-02-28 21:30] VITALS: BP 104/50; RESP 18
[2017-02-28] MEDS ORDERED: IBUPROFEN 200 MG TAB PO PRN (21:30)
[2017-02-28] MEDS ORDERED: IPRATROPIUM (NEB) 0.5 MG/2.5 ML AMP HHN PRN (22:00)
[2017-02-28] MEDS ORDERED: ALBUTEROL 0.083% (NEB) 2.5 MG/3 ML AMP HHN PRN (22:00)
[2017-02-28] MEDS: METOPROLOL 100 MG TAB PO SCH (22:00)
[2017-02-28] MEDS: DORZOLAMIDE 2% 10 ML OPH LEFT EYE SCH ×2 (22:14→22:21)
[2017-02-28] MEDS: BRIMONIDINE 0.2%-TIMOLOL 0.5% 5ML OPH LEFT EYE SCH (22:15)
[2017-02-28] MEDS: TAMSULOSIN (SR) 0.4 MG CAP PO SCH (22:16)
[2017-02-28] MEDS: ATORVASTATIN 40 MG TAB PO SCH (22:16)
[2017-02-28] MEDS: LATANOPROST 0.005% 2.5 ML OPH LEFT EYE SCH (22:16)
[2017-02-28] MEDS: FAMOTIDINE 20 MG TAB PO SCH (22:16)
[2017-03-01] VITALS (16 sets, daily range): BP systolic 128–172; BP diastolic 53–77; PULSE 58–76; RESP 0–23
[2017-03-01 05:12] LABS: ADD SCAN DIFF NO
[2017-03-01 05:21] LABS: BASOPHILS % 0.2 % (0.0-2.0); EOSINOPHILS # 0.1 10^3/ul (0.0-0.5); EOSINOPHILS % 1.5 % (0.0-7.0); LYMPHOCYTES # 3.3 10^3/ul (0.8-2.9); LYMPHOCYTES % 38.5 % (15.0-51.0); MEAN CORPUSCULAR HEMOGLOBIN 27.6 pg (29.0-33.0); MEAN CORPUSCULAR HGB CONC 32.4 g/dl (32.0-37.0); MEAN CORPUSCULAR VOLUME 85.2 fl (82.0-101.0); MEAN PLATELET VOLUME 10.5 fl (7.4-10.4); MONOCYTE # 0.5 10^3/ul (0.3-0.9); MONOCYTES % 6.1 % (0.0-11.0); NEUTROPHIL # 4.6 10^3/ul (1.6-7.5); NEUTROPHILS % 53.2 % (39.0-77.0); PLATELET COUNT 212 10^3/UL (140-415); RED BLOOD COUNT 3.99 10^6/ul (4.70-6.10); RED CELL DISTRIBUTION WIDTH 12.4 % (11.5-14.5); WHITE BLOOD COUNT 8.6 10^3/ul (4.8-10.8)
[2017-03-01] MEDS: LEVOFLOXACIN 500 MG TAB PO SCH (05:36)
[2017-03-01 05:45] LABS: IRON 55 ug/dl (35-150)
[2017-03-01 05:48] LABS: ALBUMIN 4.4 g/dl (3.3-4.9); ALBUMIN/GLOBULIN RATIO 1.62; BILIRUBIN,INDIRECT 0.3 mg/dl (0-1.1); BILIRUBIN,TOTAL 0.3 mg/dl (0.2-1.3); CREATININE 1.04 mg/dl (0.61-1.24); POTASSIUM 4.4 mmol/L (3.5-5.1); TOTAL PROTEIN 7.1 g/dl (6.1-8.1)
[2017-03-01 05:55] LABS: TOTAL IRON BINDING CAPACITY 295 ug/dl (241-421)
[2017-03-01 06:16] LABS: PROSTATE SPECIFIC ANTIGEN 0.2 ng/ml (0.0-4.0); THYROID STIMULATING HORMONE 2.31 MIU/L (0.465-4.680)
--- NOTE | 2017-03-01 07:04 | HPN ---
Date/Time of Note Date/Time of Note DATE: 03/01/17 TIME: 07:04 Interval H&P Admission Note Pt. seen H&P reviewed: No system changes MARIE PEREZ MD Mar 01, 2017 07:04
[2017-03-01] MEDS ORDERED: SUCCINYLCHOLINE CHLORIDE 100 MG/5 ML SYG IV ONE (07:28)
[2017-03-01] MEDS ORDERED: ROCURONIUM 50 MG INJ ONE (07:28)
[2017-03-01] MEDS ORDERED: LIDOCAINE 2% (SDV) 5 ML INJ ONE (07:28)
[2017-03-01] MEDS ORDERED: FENTAnyl 50 MCG/ML VIAL ONE (07:28)
[2017-03-01] MEDS ORDERED: PROPOFOL 20 ML ONE (07:28)
[2017-03-01] MEDS ORDERED: LABETALOL HCL 20MG INJ IV PRN (07:30)
[2017-03-01] MEDS ORDERED: DIPHENHYDRAMINE 50 MG INJ IV PRN (07:30)
[2017-03-01] MEDS ORDERED: ONDANSETRON 4 MG INJ IV PRN (07:30)
[2017-03-01] MEDS ORDERED: MEPERIDINE 25 MG INJ IV PRN (07:30)
[2017-03-01] MEDS ORDERED: FENTAnyl 50 MCG/ML VIAL IV PRN (07:30)
[2017-03-01] MEDS ORDERED: hydrALAzine 20 MG INJ IV PRN (07:30)
[2017-03-01] MEDS ORDERED: HYDROmorphONE (0.2 MG/ML) 10ML SYG IV PRN ×2 (07:30)
[2017-03-01] MEDS ORDERED: EPHEDrine SULFATE 50 MG/5 ML SYG IV PRN (07:30)
[2017-03-01] MEDS ORDERED: PROCHLORPERAZINE 10 MG INJ IV PRN (07:30)
[2017-03-01] MEDS ORDERED: INSULIN ASPART [NOVOLOG] 3 ML PEN SC ONE (07:30)
[2017-03-01] MEDS ORDERED: PHENYLephrine (100 MCG/ML) 5ML SYG ONE (07:32)
[2017-03-01 07:40] LABS: INR 1.03; PROTIME 13.5 Sec (12.2-14.2); PT RATIO 1.1
[2017-03-01 07:41] LABS: PARTIAL THROMBOPLASTIN TIME 38.1 Sec (25.0-35.0)
[2017-03-01] MEDS: ALBUTEROL 0.083% (NEB) 2.5 MG/3 ML AMP HHN SCH ×2 (07:46→16:22)
[2017-03-01] MEDS: IPRATROPIUM (NEB) 0.5 MG/2.5 ML AMP HHN SCH ×2 (07:46→16:22)
[2017-03-01] MEDS ORDERED: ONDANSETRON 4 MG INJ ONE (07:54)
[2017-03-01] MEDS ORDERED: CEFAZOLIN 1 GM INJ ONE (07:54)
[2017-03-01] MEDS ORDERED: EPHEDrine SULFATE 50 MG/5 ML SYG ONE (07:54)
[2017-03-01] MEDS ORDERED: DEXAMETHASONE 4 MG/ML 1 ML INJ ONE (07:54)
[2017-03-01] MEDS: INSULIN ASPART [NOVOLOG] 3 ML PEN SC SCH ×4 (08:00→20:43)
[2017-03-01] MEDS ORDERED: ACETAMINOPHEN 1000MG/100ML IV 100 ML ONE (08:08)
[2017-03-01] MEDS ORDERED: NEOSTIGMINE 3 MG/3 ML SYRINGE ONE (08:13)
[2017-03-01] MEDS ORDERED: GLYCOPYRROLATE 0.4 MG INJ ONE (08:13)
[2017-03-01] MEDS ORDERED: ESMOLOL 10 ML ONE (08:18)
--- NOTE | 2017-03-01 09:54 | RADRPT ---
Vent Rate: 59 bpm RR Interval: 0 msec NJ Interval: 202 msec QRS Duration: 110 msec QT Interval: 444 msec QTC Interval: 439 msec P-R-T [place]ron: 49 - -31 - 43 degrees Sinus bradycardia with sinus arrhythmia Left axis deviation Left ant Hemiblock Moderate voltage criteria for LVH, may be normal variant Abnormal ECG No previous tracing available for comparison Electronically Signed By: Claudio Por [id number]
--- NOTE | 2017-03-01 10:02 | OPR ---
DATE OF OPERATION: 03/01/2017 PREOPERATIVE DIAGNOSIS: Bladder tumors. POSTOPERATIVE DIAGNOSIS: Bladder tumors. OPERATION PERFORMED: Transurethral resection of bladder tumors. TECHNIQUE: The patient was brought to the operating room. The patient was given general endotrache al anesthesia. A time-out was done. The patient was identified by his name, date, and the pr ocedure, and the patient was given 2 g of Ancef IV at the start of the procedure. The patient was p ositioned in the lithotomy position, and the genital area was prepped and draped in the usual steril e manner, and the #22 Filipino cystoscope sheath was introduced under direct vision through the penile urethra all the way to the bladder. The bladder had blood clots in it as well as the tumor. These were identified, and the ureteral orifices were intact. Then, I removed the cystoscope and dilated the urethra with the Omero dilators up to #30 Filipino. Then I inserted the 26-Filipino bipolar re sectoscope sheath, and then I resected the tumor. Also, there were tumors next to it that I also e lectrocoagulated. All the bleeders were controlled and burned, and any area that is suspicious for tumor was also electrocoagulated, and then the tumors were removed and passed for pathology. The ba se and edges of the tumor were electrocoagulated, and then the bladder was emptied and the #18-Frenc h Thorpe catheter was inserted and connected to a drainage bag. The patient tolerated the procedure well and was transferred to recovery room in stable and satisfactory condition. Dictated By: MARIE ANTUNEZ/JOSELIN Conf#: [id number] DID#: [id number]
[2017-03-01] MEDS: METHIMAZOLE 5 MG TAB PO SCH (11:05)
[2017-03-01] MEDS: NICOTINE (7 MG/24 HR) PATCH TRANSDERM SCH (11:06)
[2017-03-01] MEDS: FAMOTIDINE 20 MG TAB PO SCH ×2 (11:07→20:44)
[2017-03-01] MEDS: BENAZEPRIL 40 MG TAB PO SCH ×2 (11:07→20:45)
[2017-03-01] MEDS: DORZOLAMIDE 2% 10 ML OPH LEFT EYE SCH ×3 (11:08→20:45)
[2017-03-01] MEDS: AMLODIPINE 10 MG TAB PO SCH (11:08)
[2017-03-01] MEDS: BRIMONIDINE 0.2%-TIMOLOL 0.5% 5ML OPH LEFT EYE SCH ×2 (11:08→20:44)
[2017-03-01] MEDS: LUBIPROSTONE 24 MCG CAP PO SCH ×2 (11:09→20:44)
[2017-03-01] MEDS: METOPROLOL 100 MG TAB PO SCH ×2 (11:17→20:45)
--- NOTE | 2017-03-01 13:49 | HP ---
Date/Time of Note Date/Time of Note DATE: 03/01/17 TIME: 13:30 Assessment/Plan VTE Prophylaxis VTE Prophylaxis Intervention: ambulation, anti-embolic stocking VTE Contraindication Reason: peripheral vascular disease Lines/Catheters IV Catheter Type (from Nrsg): Peripheral IV Central line still needed: No Urinary Cath still in place: Yes Reason Cath still needed: urinary retention Assessment/Plan Assessment/Plan 1. Hematuria with urinary retention. Dr. Nj already performed the resection and coagulation of bladder tumors. Positive for history of having a bladder tumor, status post transurethral resection of the bladder tumor in 2012. 2. Coronary artery disease with history of stent placement. Dr. Howard is in cardiology consultation. 3. Hypertension.Now still HTN-ve. Continue to monitor blood pressure. 4. Dyslipidemia. Continue statin. 5. Diabetes mellitus. Will continue Lantus 25 units at 11 pm and and NovoLog 8 units with meals;and sliding scale. 6. Hyperthyroidism. Tapazole 10 mg bid. Continue sequential compression device for deep venous thrombosis prophylaxis and Pepcid for peptic ulcer disease prophylaxis. 7.COPD 8.Hx of heavy cigarette smoking with current 8-10 cig/day smoking. Discussed. 9.Anemia of chronic disease and post hemorrhagic anemia 10.PAD 11.MD 12.Mild cognitive impairment 13.BPH 14.Noncomplience Cont'd Hospitalization Reason: s/p bladder tumor resection. HPI/ROS Admit Date/Time Admit Date/Time Bloody urine . About 10 days ago, on and off bloody urine. Came to er after urinary retention and being unable urinate. In er 500 cc was drained after Thorpe insertion. Discussed with dr. Liao. Resection already was done.Doing well after the surgery. ROS Subjective hx not possible: other (confiortable.) Constitutional: diaphoresis, fatigue, improved, nausea, poor po, No chills, No disoriented, No febrile, No no complaints, No other, No weight change Eyes: discharge, visual change, No no complaints, No other, No pain, No redness ENT: congestion, sore throat, No bleeding, No discharge, No dysphagia, No no complaints, No other, No pain Respiratory: cough, shortness of breath, No no complaints, No other, No pain, No pleuritic pain, No sputum, No wheezing Cardiovascular: orthopenea, No chest pain, No edema, No lightheadedness, No no complaints, No other, No palpitations, No paroxysmal nocturnal dyspnea Gastrointestinal: flatus, nausea, passing stool (no bm x 3 days. He didn' t eat.) Genitourinary: bleeding, dysuria, hematuria, No discharge, No flank pain, No no complaints, No other Musculoskeletal: back pain, bone/joint pain, neck pain, No no complaints, No other, No restricted range of motion, No swelling Skin: bruising, pruritis, No erythema, No laceration, No no complaints, No other, No rash, No skin lesions Neurologic: dizziness, headache, No confusion, No focal-weakness, No no complaints, No other, No seizure, No syncope Endocrine: dry skin, No no complaints, No other, No polydypsia, No polyuria, No temp intolerance, No weight change Lymphatic: No adenopathy, No lymphadema, No no complaints, No other, No tender nodes Psychological: depression, No anxiety, No confusion, No nl mood/affect, No no complaints, No other, No suicidal Immunologic: No immunodeficiency, No no complaints, No other, No pruritis, No rhinitis, No urticaria PMH/Family/Social Past Medical History Medical History: colitis, coronary artery disease, diabetes, high cholesterol, hypertension Past Surgical History Past Surgical Hx: angioplasty Family History Significant Family History: asthma, heart disease, cancer, COPD, diabetes, hypertension, lung disease Social History Alcohol Use: none Smoking Status: Current every day smoker Exam/Review of Systems Vital Signs Vitals Vital Signs Date Time Temp Pulse Resp B/P Pulse Ox O2 Delivery O2 Flow Rate FiO2 03/01/17 09:28 60 23 169/71 93 Room Air 03/01/17 08:48 8.0 03/01/17 08:35 98.5 Intake and Output 02/28/17 02/28/17 03/01/17 15:00 23:00 07:00 Intake Total 250 ml Output Total 300 ml 250 ml 600 ml Balance -300 ml -250 ml -350 ml Exam Constitutional: distress, frail, oriented, well developed, No alert, No non-verbal, No other Psych: anxiety, confusion, No depression, No nl mood/affect, No no complaints, No other, No suicidal Head: atraumatic Eyes: EOMI, PERRL, nl lids, No fundi, disc, No icteric, No nl conjunctiva, No nl sclera, No other ENMT: tympanic membranes, No intubated, No mucosa pink and moist, No nl external ears & nose, No nl lips & teeth, No nl nasal mucosa & septum, No other Neck: bruits, jvd Respiratory: congested cough, diminished breath sounds, labored breathing, No clear to auscultation, No crackles/rales, No intercostal retraction, No normal air movement, No other, No respirations, No tactile fremitus, No wheezing Cardiovascular: bruits, jugular venous distention (JVD), regular rate and rhythm, systolic murmur, No S3, No S4, No diastolic murmur, No edema, No gallop, No irregular rhythm, No murmurs/extra sounds, No nl pulses, No other, No rub Gastrointestinal: bowel sounds, distended, hepatomegaly, nl liver, spleen, splenomegaly, No ascites, No firm, No mass, No non-tender, No other, No rebound or guarding , No soft, No surgical scars, No tender Genitourinary - Male: nl penis, nl scrotum, No CVA tenderness, No discharge, No other Musculoskeletal: joint tenderness, muscle tone, muscle weakness, No nl extremities to inspection, No nl gait and stance, No other, No range of motion, No spine non-tender, No swelling Extremities: normal pulses, other (decreased pulsation of art. dors pedis bilaterally.), No calf tenderness, No clubbing, No cyanosis, No edema, No palpable cord, No pitting pedal edema, No tenderness Skin: diaphoresis Lymph: No enlarged, No nl lymph nodes, No nontender, No other Labs Result Diagram: 03/01/175 03/01/175 Medications Medications Current Medications Atorvastatin Calcium (Lipitor) 40 mg HS PO Last administered on 02/28/17t 22:16 ; Admin Dose 40 MG; Start 02/28/17 at 21:00 Ondansetron HCl (Zofran Inj) 4 mg Q6H PRN IV NAUSEA AND/OR VOMITING; Start 02/28 at 12:00 Acetaminophen (Tylenol Tab) 650 mg Q6H PRN PO PAIN LEVEL 1-3 OR FEVER; Start at 12:00 Morphine Sulfate (morphine) 2 mg Q4H PRN IV SEVERE PAIN LEVEL 7-10; Start at 12:00 Famotidine (Pepcid) 20 mg Q12 PO Last administered on 03/01/17 11:07; Admin Dose 20 MG; Start 02/28/17 at 21:00 Brimonidine/ Timolol (Combigan Oph) 1 drop BID LEFT EYE Last administered on 11:08; Admin Dose 1 DROP; Start 02/28/17 at 21:00 Dorzolamide HCl (Trusopt) 1 drop TID LEFT EYE Last administered on 03/01/17 11: 08; Admin Dose 1 DROP; Start 02/28/17 at 13:00 Methimazole (Tapazole) 10 mg DAILY PO Last administered on 03/01/17 11:05; Admin Dose 10 MG; Start 03/01/17 at 09:00 Miscellaneous Information 1 ea NOTE XX ; Start 02/28/17 at 12:00 Glucose (Glutose) 15 gm Q15M PRN PO DECREASED GLUCOSE; Start 02/28/17 at 12:00 Glucose (Glutose) 22.5 gm Q15M PRN PO DECREASED GLUCOSE; Start 02/28/17 at 12:00 Dextrose (D50w Syringe) 25 ml Q15M PRN IV DECREASED GLUCOSE; Start 02/28/17 at 12:00 Dextrose (D50w Syringe) 50 ml Q15M PRN IV DECREASED GLUCOSE; Start 02/28/17 at 12:00 Glucagon (Glucagen) 1 mg Q15M PRN IM DECREASED GLUCOSE; Start 02/28/17 at 12:00 Glucose (Glutose) 15 gm Q15M PRN BUCCAL DECREASED GLUCOSE; Start 02/28/17 at 12: 00 Tamsulosin HCl (Flomax) 0.4 mg QHS PO Last administered on 02/28/17 22:16; Admin Dose 0.4 MG; Start 02/28/17 at 21:00 Latanoprost (Xalatan) 1 drop QHS LEFT EYE Last administered on 02/28/17 22:16; Admin Dose 1 DROP; Start 02/28/17 at 21:00 Amlodipine Besylate (Norvasc) 10 mg DAILY PO Last administered on 03/01/17 11: 08; Admin Dose 10 MG; Start 03/01/17 at 09:00 Ibuprofen (Motrin) 200 mg Q6H PRN PO PAIN; Start 02/28/17 at 21:30 Levofloxacin (Levaquin) 500 mg DAILY@06 PO ; Start 03/01/17 at 06:00 Metoprolol Tartrate (Lopressor) 100 mg BID PO Last administered on 03/01/17 11: 17; Admin Dose 100 MG; Start 02/28/17 at 22:00 Senna (Senokot) 1 tab QHS PO ; Start 03/01/17 at 21:00 Benazepril HCl (Lotensin) 40 mg BID PO Last administered on 03/01/17 11:07; Admin Dose 40 MG; Start 03/01/17 at 09:00 Insulin Glargine (Lantus) 22 unit DAILY@20 SC ; Start 03/01/17 at 20:00 Lubiprostone (Amitiza) 24 mcg BID PO Last administered on 03/01/17 11:09; Admin Dose 24 MCG; Start 03/01/17 at 09:00 Nicotine (Nicoderm 7 Mg/ 24 Hr) 1 patch DAILY TRANSDERM Last administered on 11:06; Admin Dose 1 PATCH; Start 03/01/17 at 09:00 BARBARA LA MD Mar 01, 2017 13:40
--- NOTE | 2017-03-01 18:51 | PN ---
Date/Time of Note Date/Time of Note DATE: 03/01/17 TIME: 18:43 Assessment/Plan VTE Prophylaxis VTE Prophylaxis Intervention: SCD's Lines/Catheters IV Catheter Type (from Nrs): Peripheral IV Urinary Cath still in place: Yes Assessment/Plan Assessment/Plan 1. Urinary retention with history of bladder tumor, status post transurethral resection of the bladder tumor in 2012. - per Dr. Nj in urology consultation. - SP TURP today- no hematuria noted 2. Coronary artery disease with history of stent placement. Dr. Howard will be following patient in cardiology consultation. 3. Hypertension. Will resume patient's home medication. Continue to monitor blood pressure. 4. Dyslipidemia. Continue statin. 5. Diabetes mellitus. - Glycemic control 6. Hyperthyroidism. Continue Tapazole. Continue sequential compression device for deep venous thrombosis prophylaxis and Pepcid for peptic ulcer disease prophylaxis. Further recommendations based on clinical course. Plan of care discussed with Dr. Real. Subjective 24 Hr Interval Summary Free Text/Dictation sp TURP today. afebrile, fc intact, dw staff. Respiratory: no complaints Cardiovascular: no complaints Gastrointestinal: no complaints Genitourinary: other (pain) Exam/Review of Systems Vital Signs Vitals Vital Signs Date Time Temp Pulse Resp B/P Pulse Ox O2 Delivery O2 Flow Rate FiO2 03/01/17 16:27 74 18 96 21 03/01/17 09:28 169/71 Room Air 03/01/17 08:48 8.0 03/01/17 08:35 98.5 Intake and Output 02/28/17 02/28/17 03/01/17 15:00 23:00 07:00 Intake Total 250 ml Output Total 300 ml 250 ml 600 ml Balance -300 ml -250 ml -350 ml Exam Constitutional: alert Respiratory: clear to auscultation, normal air movement Cardiovascular: nl pulses, regular rate and rhythm Gastrointestinal: non-tender, soft Musculoskeletal: nl extremities to inspection Extremities: normal pulses Neurological: other Results Result Diagram: 03/01/17 0445 03/01/17 0445 Results 24 hrs Laboratory Tests Test 02/28/17 22:13 03/01/17 04:45 03/01/17 12:04 03/01/17 16:57 Bedside Glucose 135 264 H 272 H White Blood Count 8.6 # Red Blood Count 3.99 L Hemoglobin 11.0 L Hematocrit 34.0 L Mean Corpuscular Volume 85.2 Mean Corpuscular Hemoglobin 27.6 L Mean Corpuscular Hemoglobin Concent 32.4 Red Cell Distribution Width 12.4 Platelet Count 212 Mean Platelet Volume 10.5 H Neutrophils % 53.2 Lymphocytes % 38.5 Monocytes % 6.1 Eosinophils % 1.5 Basophils % 0.2 Nucleated Red Blood Cells % 0.0 Neutrophils # 4.6 Lymphocytes # 3.3 H Monocytes # 0.5 Eosinophils # 0.1 Basophils # 0.0 Nucleated Red Blood Cells # 0.0 Prothrombin Time 13.5 Prothrombin Time Ratio 1.1 INR International Normalized Ratio 1.03 Activated Partial Thromboplast Time 38.1 H Thrombin Time 15.0 Sodium Level 143 Potassium Level 4.4 Chloride Level 108 Carbon Dioxide Level 30 Anion Gap 9 # Blood Urea Nitrogen 23 H Creatinine 1.04 Glucose Level 132 # Hemoglobin A1c 6.3 H Calcium Level 9.0 Magnesium Level 2.0 Iron Level 55 Total Iron Binding Capacity 295 Percent Iron Saturation 19 L Total Bilirubin 0.3 Direct Bilirubin 0.00 Indirect Bilirubin 0.3 Aspartate Amino Transf (AST/SGOT) 20 Alanine Aminotransferase (ALT/SGPT) 33 Alkaline Phosphatase 65 Total Protein 7.1 Albumin 4.4 Globulin 2.70 Albumin/Globulin Ratio 1.62 Prostate Specific Antigen 0.2 Thyroid Stimulating Hormone (TSH) 2.310 Medications Medications Current Medications Atorvastatin Calcium (Lipitor) 40 mg HS PO Last administered on 02/28/17 22:16 ; Admin Dose 40 MG; Start 02/28/17 at 21:00 Ondansetron HCl (Zofran Inj) 4 mg Q6H PRN IV NAUSEA AND/OR VOMITING; Start 02/28 at 12:00 Acetaminophen (Tylenol Tab) 650 mg Q6H PRN PO PAIN LEVEL 1-3 OR FEVER; Start at 12:00 Morphine Sulfate (morphine) 2 mg Q4H PRN IV SEVERE PAIN LEVEL 7-10; Start at 12:00 Famotidine (Pepcid) 20 mg Q12 PO Last administered on 03/01/17 11:07; Admin Dose 20 MG; Start 02/28/17 at 21:00 Brimonidine/ Timolol (Combigan Oph) 1 drop BID LEFT EYE Last administered on 11:08; Admin Dose 1 DROP; Start 02/28/17 at 21:00 Dorzolamide HCl (Trusopt) 1 drop TID LEFT EYE Last administered on 03/01/17 17: 02; Admin Dose 1 DROP; Start 02/28/17 at 13:00 Methimazole (Tapazole) 10 mg DAILY PO Last administered on 03/01/17 11:05; Admin Dose 10 MG; Start 03/01/17 at 09:00 Miscellaneous Information 1 ea NOTE XX ; Start 02/28/17 at 12:00 Glucose (Glutose) 15 gm Q15M PRN PO DECREASED GLUCOSE; Start 02/28/17 at 12:00 Glucose (Glutose) 22.5 gm Q15M PRN PO DECREASED GLUCOSE; Start 02/28/17 at 12:00 Dextrose (D50w Syringe) 25 ml Q15M PRN IV DECREASED GLUCOSE; Start 02/28/17 at 12:00 Dextrose (D50w Syringe) 50 ml Q15M PRN IV DECREASED GLUCOSE; Start 02/28/17 at 12:00 Glucagon (Glucagen) 1 mg Q15M PRN IM DECREASED GLUCOSE; Start 02/28/17 at 12:00 Glucose (Glutose) 15 gm Q15M PRN BUCCAL DECREASED GLUCOSE; Start 02/28/17 at 12: 00 Tamsulosin HCl (Flomax) 0.4 mg QHS PO Last administered on 02/28/17 22:16; Admin Dose 0.4 MG; Start 02/28/17 at 21:00 Latanoprost (Xalatan) 1 drop QHS LEFT EYE Last administered on 02/28/17 22:16; Admin Dose 1 DROP; Start 02/28/17 at 21:00 Amlodipine Besylate (Norvasc) 10 mg DAILY PO Last administered on 03/01/17 11: 08; Admin Dose 10 MG; Start 03/01/17 at 09:00 Ibuprofen (Motrin) 200 mg Q6H PRN PO PAIN; Start 02/28/17 at 21:30 Levofloxacin (Levaquin) 500 mg DAILY@06 PO ; Start 03/01/17 at 06:00 Metoprolol Tartrate (Lopressor) 100 mg BID PO Last administered on 03/01/17 11: 17; Admin Dose 100 MG; Start 02/28/17 at 22:00 Senna (Senokot) 1 tab QHS PO ; Start 03/01/17 at 21:00 Benazepril HCl (Lotensin) 40 mg BID PO Last administered on 03/01/17 11:07; Admin Dose 40 MG; Start 03/01/17 at 09:00 Insulin Glargine (Lantus) 22 unit DAILY@20 SC ; Start 03/01/17 at 20:00 Lubiprostone (Amitiza) 24 mcg BID PO Last administered on 03/01/17 11:09; Admin Dose 24 MCG; Start 03/01/17 at 09:00 Nicotine (Nicoderm 7 Mg/ 24 Hr) 1 patch DAILY TRANSDERM Last administered on 11:06; Admin Dose 1 PATCH; Start 03/01/17 at 09:00 RUTH SONI Mar 01, 2017 18:51
[2017-03-01] MEDS ORDERED: INSULIN GLARGINE [LANtus] 3 ML PEN SC SCH (20:00)
[2017-03-01] MEDS: TAMSULOSIN (SR) 0.4 MG CAP PO SCH (20:44)
[2017-03-01] MEDS: ATORVASTATIN 40 MG TAB PO SCH (20:44)
[2017-03-01] MEDS: LATANOPROST 0.005% 2.5 ML OPH LEFT EYE SCH (20:44)
[2017-03-01] MEDS ORDERED: NON-FORMULARY/PATIENT OWN MED (Rosuvastatin Calcium* (Crestor*) 10 MG) PO SCH (21:00)
[2017-03-01] MEDS ORDERED: SENNA TAB PO SCH (21:00)
[2017-03-02] MEDS: LEVOFLOXACIN 500 MG TAB PO SCH (05:42)
[2017-03-02 06:53] LABS: ADD SCAN DIFF NO
[2017-03-02 07:00] LABS: BASOPHILS % 0.2 % (0.0-2.0); EOSINOPHILS % 0.2 % (0.0-7.0); HEMATOCRIT 34.4 % (42.0-52.0); HEMOGLOBIN 11.3 g/dl (14.0-18.0); LYMPHOCYTES % 22.5 % (15.0-51.0); MEAN CORPUSCULAR HEMOGLOBIN 27.7 pg (29.0-33.0); MEAN CORPUSCULAR HGB CONC 32.8 g/dl (32.0-37.0); MEAN CORPUSCULAR VOLUME 84.3 fl (82.0-101.0); MEAN PLATELET VOLUME 10.8 fl (7.4-10.4); MONOCYTE # 0.7 10^3/ul (0.3-0.9); MONOCYTES % 5.6 % (0.0-11.0); NEUTROPHIL # 9.5 10^3/ul (1.6-7.5); PLATELET COUNT 239 10^3/UL (140-415); RED BLOOD COUNT 4.08 10^6/ul (4.70-6.10); RED CELL DISTRIBUTION WIDTH 12.4 % (11.5-14.5); WHITE BLOOD COUNT 13.3 10^3/ul (4.8-10.8)
[2017-03-02 07:15] VITALS: BP 161/70; RESP 18
[2017-03-02 07:20] LABS: CALCIUM 9.3 mg/dl (8.4-10.2); CREATININE 1.06 mg/dl (0.61-1.24); POTASSIUM 4.2 mmol/L (3.5-5.1)
--- NOTE | 2017-03-02 08:04 | PN ---
DATE: 03/02/2017 SUBJECTIVE: This patient is status post transurethral resection of bladder tumor, has an indwelling Thorpe catheter, and he is comfortable. He denies having any pain. OBJECTIVE: VITAL SIGNS: His temperature is 98.2, pulse is 62, respirations 18, blood pressure 128/60. ABDOMEN: Soft. The Thorpe catheter is draining clear urine. LABORATORY DATA: CBC shows a white count of 13.3, hemoglobin 11.3, hematocrit 34.4. The BUN is 24, creatinine 1.06. Electrolytes are normal. The pathology is still pending. IMPRESSION: Status post transurethral resection of bladder tumor. PLAN: To discontinue his Thorpe catheter, send urine for culture, and once the patient voids, he cou ld go home, and he should follow up in the office in about 2 weeks. I have talked to his daughter alisa nd informed her for the need for followup, and if there is any question or concern they could call m leighann. Dictated By: MARIE ANTUNEZ/JOSELIN Conf#: [id number] DID#: [id number]
[2017-03-02] MEDS: ALBUTEROL 0.083% (NEB) 2.5 MG/3 ML AMP HHN SCH (08:15)
[2017-03-02] MEDS: IPRATROPIUM (NEB) 0.5 MG/2.5 ML AMP HHN SCH (08:15)
[2017-03-02] MEDS: INSULIN ASPART [NOVOLOG] 3 ML PEN SC SCH (08:37)
[2017-03-02] MEDS: BRIMONIDINE 0.2%-TIMOLOL 0.5% 5ML OPH LEFT EYE SCH (08:38)
[2017-03-02] MEDS: DORZOLAMIDE 2% 10 ML OPH LEFT EYE SCH (08:38)
[2017-03-02] MEDS: METOPROLOL 100 MG TAB PO SCH (08:38)
[2017-03-02] MEDS: AMLODIPINE 10 MG TAB PO SCH (08:39)
[2017-03-02] MEDS: FAMOTIDINE 20 MG TAB PO SCH (08:39)
[2017-03-02] MEDS: LUBIPROSTONE 24 MCG CAP PO SCH (08:39)
[2017-03-02] MEDS: BENAZEPRIL 40 MG TAB PO SCH (08:39)
[2017-03-02] MEDS: METHIMAZOLE 5 MG TAB PO SCH (08:39)
[2017-03-02] MEDS: NICOTINE (7 MG/24 HR) PATCH TRANSDERM SCH (08:42)
[2017-03-02] MEDS ORDERED: SULF1TAB31 PO (11:49)
--- NOTE | 2017-03-03 18:18 | DS ---
Date/Time of Note Date/Time of Note DATE: 03/03/17 TIME: 18:16 Discharge Summary Admission/Discharge Info Admit Date/Time Feb 28, 2017 at 02:03 Discharge Date/Time Mar 02, 2017 at 12:24 Final Diagnosis 1. Hematuria with urinary retention controlled. S/p resection and coagulation of bladder tumors by Dr. Nj . Positive for history of having a bladder tumor, status post transurethral resection of the bladder tumor in 2012. 2. Coronary artery disease with history of stent placement. Dr. Howard is in cardiology consultation. 3. Hypertension.Now still HTN-ve. Continue to monitor blood pressure. 4. Dyslipidemia. Continue statin. 5. Diabetes mellitus. Will continue Lantus 25 units at 11 pm and and NovoLog 8 units with meals;and sliding scale. 6. Hyperthyroidism. Tapazole 10 mg bid. Continue sequential compression device for deep venous thrombosis prophylaxis and Pepcid for peptic ulcer disease prophylaxis. 7.COPD 8.Hx of heavy cigarette smoking with current 8-10 cig/day smoking. Discussed. 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 Procedures Transuretral urinary bladder tumor removal with control of hematuria. Hospital Course This is a 76-year-old male with past medical history of coronary artery disease with PCI approximately 2008, diabetes, hypertension who has been recently diagnosed with bladder tumor and urinary obstruction. Patient was sent to the emergency room for admission to undergo bladder procedure. Patient denies any chest pain or shortness of breath at rest or with exertion. He is able to walk up a flight of stairs and a few blocks without any symptoms of chest pain or shortness of breath. He does have history of hypertension which worsens during pain. Patient yesterday with significant discomfort and blood pressure was quite elevated. He denied any chest pain or shortness of breath during this episode. Cardiac consultation was requested for preoperative risk stratification. Home Meds Reported Medications Sulfamethoxazole/Trimethoprim* (Bactrim Ds* Tablet) 1 Each Tablet, 1 TAB PO BID , #14 TAB 03/02/17 Ezetimibe* (Zetia*) 10 Mg Tablet, 10 MG PO DAILY, TAB 02/28/17 Clonidine Hcl* (Clonidine Hcl*) 0.2 Mg Tablet, 0.2 MG PO Q8, TAB 02/28/17 Sennosides* (Senna Lax*) 8.6 Mg Tablet, 1 TAB PO QHS, TAB 02/28/17 Ibuprofen* (Advil*) 200 Mg Capsule, 200 MG PO Q6H Y for PAIN, CAP 02/28/17 Levofloxacin* (Levofloxacin*) 500 Mg Tablet, 500 MG PO DAILY, TAB 02/28/17 Travoprost* (Travatan*) 0.004%-2.5 Ml Opht, 1 DROP LEFT EYE QHS, #1 BOTTLE 02/28/17 Dorzolamide Hcl* (Dorzolamide Hcl*) 10 Ml Drops, 1 DROP LEFT EYE TID, #1 EA 02/28/17 Brimonidine/Timolol* (Combigan*) 5 Ml Drops, 1 DROP LEFT EYE BID, BOTTLE 02/28/17 Rosuvastatin Calcium* (Crestor*) 10 Mg Tablet, 10 MG PO QHS, #30 TAB 02/28/17 Metoprolol Tartrate* (Lopressor*) 100 Mg Tablet, 100 MG PO BID, #60 TAB 02/28/17 Cephalexin* (Cephalexin*) 500 Mg Capsule, 500 MG PO 08/30/13 Insulin Glargine,Hum.rec.anlog (Lantus) 100 U/Ml Cartridge, 0 SQ 08/30/13 Clonidine (Clonidine (Pediatric Compound)) 0.1 Mg/Ml Susp, 0.2 MG PO 08/30/13 Tamsulosin Hcl* (Tamsulosin Hcl*) 0.4 Mg Cap.er.24h, 0.4 MG PO 08/30/13 Isopropyl Alcohol/Benzocaine (SM ALCOHOL-BENZOCAINE PREP PAD) 1 Each Med..pad, 1 EACH TP 08/30/13 Amlodipine Besylate* (Amlodipine Besylate*) 10 Mg Tablet, 10 MG PO 08/30/13 Benazepril Hcl* (Lotensin*) 40 Mg Tablet, 40 MG PO 08/30/13 Simvastatin (Simvastatin) 40 Mg Tablet, 40 MG PO 08/30/13 Methimazole* (Tapazole*) 10 Mg Tablet, 10 MG PO 08/30/13 Discontinued Reported Medications Amlodipine/Valsartan (Exforge 5-320 mg Tablet) 1 Each Tablet, 1 EACH PO, TAB 02/28/17 [flomax] No Conflict Check 08/30/13 Donepezil Hcl (DONEPEZIL HCL) 10 Mg Tab.rapdis, 10 MG PO 08/30/13 Primary Care Provider MD BESSIE Castillo VAGHARSHAK MD Mar 03, 2017 18:18
== END 2017-03-02 12:24 | disposition home health service (06) | DRG 670 ==
LOC: E/R 22:27 → PP2 02-28 02:03
PROVIDERS: ADMIT Internal Medicine; ATTEND Internal Medicine
PROC: 0TBB8ZZ Excision of Bladder, Via Natural or Artificial Opening Endoscopic (ICD-10-PCS; principal; 2017-03-01 07:30)
DX: C67.9 Malignant neoplasm of bladder, unspecified (principal); R31.0 Gross hematuria; J44.9 Chronic obstructive pulmonary disease, unspecified; E11.51 Type 2 diabetes mellitus with diabetic peripheral angiopathy without gangrene; E78.5 Hyperlipidemia, unspecified; E05.90 Thyrotoxicosis, unspecified without thyrotoxic crisis or storm; I25.10 Atherosclerotic heart disease of native coronary artery without angina pectoris; I10 Essential (primary) hypertension; N40.0 Benign prostatic hyperplasia without lower urinary tract symptoms; R33.9 Retention of urine, unspecified; Z95.5 Presence of coronary angioplasty implant and graft; Z98.890 Other specified postprocedural states; Z91.19 Patient's noncompliance with other medical treatment and regimen; Z79.4 Long term (current) use of insulin; F03.90 Unspecified dementia, unspecified severity, without behavioral disturbance, psychotic disturbance, mood disturbance, and anxiety; Z87.891 Personal history of nicotine dependence
CPT/HCPCS: 36415; 71010; 80048; 80053; 81001; 81003; 82962; 83036; 83540; 83690; 83735; 84153; 84154; 84443; 85025; 85049; 85610; 85670; 85730; 87086; 88305; 93005; 93306; 94640; 94664; J0131; J0690; J1100; J1815; J2370; J2405; J2710; J3010; J7999